=== PATIENT | male | born 1955 | race Caucasian/White ===

== ENCOUNTER 2016-09-16 09:33 | Day surgery (SDC) | payer OTHER ==
[~2016-09-16] VITALS: Ht 182.9 cm; Wt 93.0 kg
[~2016-09-16 09:33] MED LIST: 0.9% Sodium Chloride 1,000 ML IV SCH; ALBU8.5H2 INHALATION; NEOM10SO8 AFFECT_EAR; Sodium Chloride LOK Flush 10 mL Syringe IV PRN; fentaNYL-PF 50 mCg/mL 2 mL Inj IVPUSH PRN
[2016-09-16] MEDS ORDERED: MULT-666 PO (09:54)
[2016-09-16 09:55] VITALS: BP 136/90; PULSE 60; RESP 16; O2SAT 95
[2016-09-16 10:38] VITALS: BP 119/80; PULSE 56; RESP 14; O2SAT 91
[2016-09-16 10:45] VITALS: BP 127/80; PULSE 63; RESP 16; O2SAT 94
--- NOTE | 2016-09-16 11:10 | ENDO ---
[address] [address] ENDOSCOPY PROCEDURE PATIENT: LORETTA YANES : 1955 MR#: [id number] ADMIT: 09/16/2016 JOB ID: [id number] DATE OF SERVICE: 09/16/2016 TYPE OF OPERATION: Colonoscopy. PREOPERATIVE DIAGNOSIS(ES): History of colon polyps. POSTOPERATIVE DIAGNOSIS(ES): 1. Moderate sigmoid diverticulosis. 2. Small internal hemorrhoids. ANESTHESIA: Fentanyl 100 mcg, Versed 5 mg IV administered. COMPLICATIONS: None. BLOOD LOSS: Minimal. DESCRIPTION OF PROCEDURE: After risks and benefits explained to the patient, informed consent was obtained. After anesthesia administered, a colonoscope was then inserted from rectum to cecum. Mucosa carefully examined. Prep of the patient was fair. After procedure was done, the scope withdrawn and procedure terminated. FINDINGS: Upon inspection of the anus, no masses, hemorrhoids, ulcers, or fissures that were seen. Throughout the entire examination, there was moderate sigmoid diverticulosis, nonbleeding. No polyps or masses were noticed. Retroflexion showed small internal hemorrhoids. IMPRESSION: 1. Small internal hemorrhoids. 2. Moderate sigmoid diverticulosis. RECOMMEND: A high-fiber diet. Repeat colonoscopy in five years given history of colon polyps.
[2016-11-20] MEDS ORDERED: TADA20TA PO (15:11)
== END 2016-09-16 23:59 | disposition home or self-care (01) ==
LOC: END 09:33
PROVIDERS: ATTEND Internal Medicine Gastroenterology
DX: Z12.11 Encounter for screening for malignant neoplasm of colon (principal); K64.8 Other hemorrhoids; K57.30 Diverticulosis of large intestine without perforation or abscess without bleeding; Z86.010 Personal history of colon polyps
CPT/HCPCS: G0121; G0500; J2250; J3010; J7030

== ENCOUNTER 2016-11-25 07:55 | Day surgery (SDC) | payer OTHER ==
[~2016-11-25] VITALS: Ht 185.4 cm; Wt 91.2 kg
--- NOTE | 2016-11-25 07:46 | PCM.HPANE ---
Patient Data Surgeon Admitting Provider: Attending Provider:Manuel Meneses MD Primary Care Physician:Haily Tay MD Other Provider:[facility] Reason for Visit Epidurmal Cyst Ht/WT & BMI Height (Feet): 6 Height (Inches): 1 Weight (Kilograms): 91.172 Body Mass Index 26.00 Allergies Coded Allergies: No Known Drug Allergies (Verified Allergy, Unknown, 11/20/16) Past Anesthesia History Anesthesia History: Denies:: Anesthesia Reactions, Fam Anesthesia Reaction, Fam Malignant Hypertherm, Malignant Hyperthermia Diabetes History Hx Diabetes?: No MRSA MRSA: No Medications Reported Medications [Zoloft] No Conflict Check Po Daily 11/25/16 Tadalafil (Cialis)20 Mg Adocxc32 Mg PO DAILY PRN ed Ref 0 As directed by physician. 11/20/16 Albuterol HFA (Proair HFA)8.5 Gm Hfa.aer.ad2 Puffs INHALATION Q4H #1 INHALER 09/15/16 Discontinued Reported Medications Multivitamin (Once Daily)1 Each Tablet1 Each PO DAILY 09/16/16 History History of ENT Problems?: Yes HEENT History: Positive for:: Hearing Problem (HX OTITIS EXTERNA RT EAR) Denture Type: None Teeth Condition: Within Normal Limits Other HEENT Pertinent History: S/P EXC BASAL CELL CA LT UPPER FOREHEAD Hx of Heart Problems?: No Cardiovascular History: Denies:: Heart Murmur Hypertension Hx of Respiratory Problem?: Yes Respiratory History: Positive for:: Asthma COPD Dyspnea (INTERMITTANT BLANCAS) Use of Inhalers / NEBS Denies:: Use of C-PAP Machine Hx Neurologic Problems?: No Neurological History: Denies:: CVA Hx of GI Problems?: Yes Other GI Pertinent History: S/P INGUINAL HERNIA RPR Hx of Problems?: Yes Other Pertinent History: ED Male Hx: Denies:: Prostate Problems Scrotal Mass Testicular Surgery Skin History: Positive for:: History Skin Disorders? (EPIDERMAL CYSTS=CURRENT PROBLEM ACTINIC/SEBORRHEIC KERATOSIS/ANGIOMAS) Denies:: Pressure Ulcers Hx Musculoskeletal Problems?: Yes Musculoskeletal History: Positive for:: Degenerative Joint Joint Replacement (S/P LT KEM) Osteoarthritis Hx of Psycho/Social Problems?: No Hx Surgeries?: Yes (L HIP REPLACEMENT, INGUINAL HERNIA REPAIR.) Hx Any Other Health Problems?: Yes Other History: Positive for:: Cancer (BASAL CELL CA LT UPPER FOREHEAD) Denies:: Endocrine Disease Hospitalization Thyroid Disease Hx Diabetes: No Hx Alcohol Use: Yes (OCCASIONALLY)Hx Substance Use: Yes (MARIJUANA) Smoking Status: Light Tobacco Smoker Have You Smoked inLast 12 mo: Yes Stop/Bang S-Snoring: Do You Snore Loudly: No T-Tired: feel tired, fatigued: No O-Obsered: Observed not breath: No P-Blood Pressure: treated: No B- Body Mass Index > 35 kg/m2: No A- Age over 50: Yes N- Neck Large Circumference: No G- Gender Male: Yes CHRISSIE Total Score: 2 CHRISSIE Risk Assessment: Low Risk, <3 Yes Risk Assessment Category Category 1A: Patient has history of documented sleep apnea, and HAS NOT received any narcotic, sedative or anesthesia administration during this stay. Category 1B: Patient has history of documented sleep apnea, and HAS received any narcotic , sedative or anesthesia administration during this stay Category 2: Patient has SUSPECTED Obstructive Sleep Apnea, and HAS received any narcotic , sedative or anesthesia administration during this stay. Category 3: Patient has SUSPECTED Obstructive Sleep Apnea and HAS NOT received narcotic, sedative or anesthesia administration during this stay. Category 4: Outpatient in Procedural Areas with known sleep apnea or who screen positive for High Risk via the STOP/BANG questionnaire. Exam Exam General Appearance: Alert, Oriented X3, Cooperative, No Acute Distress HEENT/AIRWAY: MP 2 Lungs: Clear to Auscultation, Normal Air Movement Heart: Exam Unremarkable, Regular Rate/Rhythm, No Murmurs/Rubs/Gallops Plan Impression Patient chart reviewed, patient interviewed and anesthestic plan with risks, benefits, and alternatives discussed, and informed consent obtained. NPO per Anesth. Guidelines: Yes ASA Physical Status: ASA2 Mod Systemic Disease Anesthetic Plan: MAC Bene/Risks/Altern/Consents: Yes HP Complete Prior to Induction: Yes Brianda Abdul MD Nov 25, 2016 07:46
[~2016-11-25 07:55] MED LIST changes: -0.9% Sodium Chloride 1,000 ML IV SCH; +CeFAZolin Inj 2 GM in IV Premix 1 EACH IV ONE; -NEOM10SO8 AFFECT_EAR; -Sodium Chloride LOK Flush 10 mL Syringe IV PRN; +TADA20TA PO; -fentaNYL-PF 50 mCg/mL 2 mL Inj IVPUSH PRN
[2016-11-25] MEDS ORDERED: fentaNYL-PF 50 mCg/mL 2 mL Inj ONE (07:56)
[2016-11-25] MEDS ORDERED: Propofol 10,000 mCg/mL 20 mL Inj ONE (07:56)
[2016-11-25] MEDS: Lactated Ringer's 1,000 ML IV SCH ×2 (07:58→09:29)
[2016-11-25 08:09] VITALS: BP 129/85; PULSE 67; RESP 15; O2SAT 92
[2016-11-25] MEDS ORDERED: CeFAZolin Inj 2 gm / 50mL D5W IV ONE (08:09)
[2016-11-25] MEDS ORDERED: ZOLOFT PO (08:18)
[2016-11-25] MEDS ORDERED: Bupivacaine-MPF 0.25%/EPI 30 mL Inj INJ ONE (09:28)
[2016-11-25] MEDS ORDERED: Bacitracin Ointment Packet TOPICAL ONE (09:49)
[2016-11-25 10:29] VITALS: BP 134/85; PULSE 53; RESP 15; O2SAT 96
[2016-11-25] MEDS ORDERED: HYDROcodone-APAP 5-325 mg Tablet PO PRN (10:40)
[2016-11-25] MEDS ORDERED: Lactated Ringer's 500 ML IV PRN (10:57)
[2016-11-25] MEDS ORDERED: Lactated Ringer's 1,000 ML IV SCH (10:57)
--- NOTE | 2016-11-25 10:58 | PCM.ANEP1 ---
Post Anesthesia Phase 1 PACU Phase 1 Assessment Vital Signs Vital Signs Date Time Temp Pulse Resp B/P Pulse Ox O2 Delivery O2 Flow Rate FiO2 11/25/16 10:29 36.0 53 15 134/85 96 Room Air 11/25/16 08:09 36.2 67 15 129/85 92 Room Air Anesthetic Administered: MAC Level of Alertness: Awake, talking PETER's with Equal Strength: Yes Pain: No Nausea or Vomiting: No Cardiovascular Function and Hy: Yes Lungs: Clear to Auscultation, Normal Air Movement Brianda Abdul MD Nov 25, 2016 10:58
[2016-11-25] MEDS ORDERED: HYDROmorphone 1 mg/mL Inj IVPUSH PRN (11:00)
[2016-11-25] MEDS ORDERED: Atropine 0.4 mg/mL Inj IVPUSH PRN (11:00)
[2016-11-25] MEDS ORDERED: Labetalol 5 mg/mL 4 mL Inj IV PRN (11:00)
[2016-11-25] MEDS ORDERED: MetoCLOpramide 5 mg/mL 2 mL Inj IVPUSH PRN (11:00)
[2016-11-25] MEDS ORDERED: EPHEDrine Sulfate 50 mg/mL Inj IVPUSH PRN (11:00)
[2016-11-25] MEDS ORDERED: fentaNYL-PF 50 mCg/mL 2 mL Inj IVPUSH PRN (11:00)
[2016-11-25] MEDS ORDERED: Phenylephrine 10,000 mCg/mL Inj IVPUSH PRN (11:00)
[2016-11-25] MEDS ORDERED: Dexamethasone 4 mg/mL Inj IVPUSH PRN (11:00)
[2016-11-25] MEDS ORDERED: Ondansetron 2 mg/mL 2 mL Inj IVPUSH PRN (11:00)
[2016-11-25 11:08] VITALS: BP 131/76; PULSE 55; RESP 16; O2SAT 93
--- NOTE | 2016-11-26 17:18 | PATH ---
SURGICAL PATHOLOGY Attending Physician:Manuel Meneses CASE STATUS: Signed Out PATIENT NAME: LORETTA YANES PID: [id number] : 1955 DATE COLLECTED:11/25/2016 16:10 SPECIMEN: 1: Mass, NOS 2: Mass, NOS 3: Mass, NOS CLINICAL HISTORY: 1. L UPPER BACK MASS 2. R EAR MASS 3. L SUBMENTAL MASS FINAL DIAGNOSIS: 1.LEFT UPPER BACK, MASS, BIOPSY: EPIDERMOID INCLUSION CYST. 2.RIGHT EAR, MASS, BIOPSY: EPIDERMOID INCLUSION CYST. 3.LEFT SUBMENTAL MASS, BIOPSY: RUPTURED EPIDERMOID INCLUSION CYST. ICD10 CODE L72.0 GROSS DESCRIPTION: The specimen is received in three formalin filled containers labeled with the patient's name. 1). The specimen is sublabeled "left upper back mass" and consists of a story-collins ellipse of skin the and friable tissue which measures 2.8 x 2.0 x 2.5 CM. The specimen is inked blue. [employer] services sales representative section is submitted in cassette 1A. 2). The specimen is sublabeled "R ear mass" and consists of a 1.6 x 0.6 x 0.9 CM monsivais-collins portion of skin and tissue. The specimen is inked blue. One financial services sales representative section is submitted in cassette 2A. 3). The specimen is sublabeled "L. submental mass" and consists of a story-collins portion of skin and tissue which measures 1.6 x 0.7 x 1.5 CM. The specimen is inked blue. One financial services sales representative section is submitted in cassette 3A. 11/25/2016 DAC MICRO DESCRIPTION: See diagnosis. ICD-9 CODES: CPT CODES: 1: 32391 2: 46693 3: 46079 Electronically Signed Out Ethel Gaytan MD [facility] Pathology [facility] [address], [place] [address] Technical component performed at [facility], [address], [place], [address]
--- NOTE | 2016-11-26 22:02 | OP ---
[address] [address] OPERATIVE REPORT PATIENT: LORETTA YANES : 1955 MR#: [id number] ADMIT: 11/25/2016 JOB ID: [id number] DATE OF SURGERY: 11/25/2016 PREOPERATIVE DIAGNOSIS(ES): 1. Right posterior ear epidermal inclusion cyst. 2. Left chin/submental epidermal inclusion cyst. 3. Left upper back upper epidermal inclusion cyst. POSTOPERATIVE DIAGNOSIS(ES): 1. Right posterior ear epidermal inclusion cyst. 2. Left chin/submental epidermal inclusion cyst. 3. Left upper back upper epidermal inclusion cyst. PROCEDURE: 1. Excision of right posterior epidermal inclusion cyst 1.5 cm. 2. Simple closure of right posterior defect, total length of layered closure 2 cm. 3. Excision of left upper back epidermal inclusion cyst, 4 cm. 4. Layered closure of left upper back defect, total length of layered closure 5 cm. 5. Excision of left chin/submental epidermal inclusion cyst, 1.5 cm. 6. Layered closure of left chin flaps submental defect, total length of layered closure 2 cm. SURGEON: Manuel Meneses MD. SHIATSU THERAPIST: None. ANESTHESIA: MAC with local. COMPLICATIONS: None apparent. SPECIMEN: 1. Right posterior epidermal inclusion cyst. 2. Left upper back epidermal inclusion cyst. 3. Left submental epidermal inclusion cyst. INDICATIONS FOR PROCEDURE: This is a 61-year-old male patient with multiple cysts. They have been enlarging. At this point, excision of the cyst are indicated for tissue diagnosis and to prevent rupture. PROCEDURE AND FINDINGS: The patient was identified in the preoperative area and the cysts were marked. The border of the cysts were marked by palpation. The patient was then taken back to the operating room and placed in a left decubitus position. Appropriate time-outs were taken. The surgical sites were 1st prepped with some alcohol and local anesthesia was then infiltrated into all three surgical sites consisting of 1% lidocaine with epinephrine and 0.25% Marcaine. The patient was then prepped and draped in the usual sterile manner. Of note, only the right ear and the left upper back lesions were draped at 1st. I first turned my attention to the right posterior ear cyst. The cyst is roughly ovoid in size, measuring approximately 1.5 cm in maximal dimension. An ellipse was then designed directly over the cyst. Incision was gently made with a #15 blade just down to the cyst. I then performed blunt and sharp dissection with a pair of iris scissors to elevate the cyst away from the skin and away from the deeper soft tissue. The cyst was then passed off to Pathology with an overlying ellipse of skin. The incision was then reapproximated with a layer of 5-0 Prolene simple running suture. The length of closure was 2 cm. I then turned my attention to the left upper back cyst. Again, an ellipse was marked over the cyst to lie within the relaxed skin tension line. Next, incision was made with a #10 blade down through the skin to the underlying subcutaneous tissue. It was noted that the patient has a fairly large and thick-walled cyst in this area approximately 4 cm in size. This was dissected free from surrounding soft tissue with blunt and sharp dissection with a pair of Metzenbaum scissors. Once this had been done, the cyst was removed with overlying ellipse of skin. This was passed off to Pathology. A layer of 3-0 Monocryl sutures were then used to reapproximate the deep soft tissue and adipose tissue. A layer of 3-0 Monocryl deep dermal sutures were then placed, followed by 4-0 Monocryl running subcuticular suture. The total length of layered closure was 5 cm. At this point, the patient was cleaned and skin glue was applied to the back incision. Ointment was applied to the right ear incision. Patient was then placed into a supine position. The left chin area was then prepped and draped in the usual sterile manner. Again, the ellipse was designed over the chin/submental epidermal inclusion cyst. The incision was designed parallel to the jaw line. Incision was then made along the ellipse with a #15 blade. This was deepened down to the underlying cyst. The cyst was then dissected free from the surrounding soft tissue with a pair of tenotomy scissors. This allowed the cyst to be removed with overlying ellipse of skin. The incision was then reapproximated first with a layer of 3-0 Monocryl, deep dermal sutures of 4-0 followed by 4-0 Monocryl running subcuticular suture. Skin glue was then applied. The patient tolerated the procedure well. Needle count, sponge count, and instrument counts were correct at the end of the procedure. Patient was transported to Recovery in a stable condition.
== END 2016-11-25 23:59 | disposition home or self-care (01) ==
LOC: SAS 07:55
PROVIDERS: ATTEND Plastic Surgery
PROC: 0HB1XZZ Excision of Face Skin, External Approach (ICD-10-PCS; 2016-11-25)
PROC: 0HB6XZZ Excision of Back Skin, External Approach (ICD-10-PCS; 2016-11-25)
PROC: 0HB2XZZ Excision of Right Ear Skin, External Approach (ICD-10-PCS; principal; 2016-11-25 10:00)
DX: L72.0 Epidermal cyst (principal)
CPT/HCPCS: 11404; 11442; 12032; 12051; J0690; J2250; J3010; J7120